=== PATIENT | male | born 1965 | race Caucasian/White ===

== ENCOUNTER 2022-03-13 07:51 | Oncology outpatient (recurring) (ONCR) | payer SELFPAY ==
[2022-03-13 09:21] LABS: Basophils # 0.1 10^3/uL (0.0-0.1); Basophils % 0.4 %; Eosinophils # 0.4 10^3/uL (0.0-0.8); Eosinophils % 1.6 %; Hematocrit 51.3 % (42.0-52.0); Hemoglobin 16.7 g/dL (11.7-16.6); Lymphocytes # 15.9 10^3/uL (0.8-4.8); Lymphocytes % 68.8 %; Mean Corpuscular HGB Conc 32.6 g/dL (30.0-36.0); Mean Corpuscular Hemoglobin 29.9 pg (28.0-34.0); Mean Corpuscular Volume 91.9 fl (80-94); Mean Platelet Volume 10.5 fL (7.4-10.4); Monocytes # 0.9 10^3/uL (0.2-0.9); Neutrophils # 5.73 10^3/uL (1.8-7.7); Neutrophils % 24.9 %; Nucleated Red Blood Cells % 0 %; Platelet Count 331 10^3/cmm (130-400); Red Blood Count 5.58 10^6/uL (4.1-5.3); Red Cell Distribution Width 13.7 % (12.1-15.1); White Blood Count 23.1 10^3/uL (4.0-10.0)
[2022-03-13 09:26] LABS: Slide Review Slide Review Perform
[2022-03-13 09:36] LABS: Alanine Aminotransferase 21 U/L (0-41); Albumin Level 3.9 g/dL (3.5-5.2); Alkaline Phosphatase 85 U/L (40-130); Aspartate Amino Transferase 16 U/L (0-40); Blood Urea Nitrogen 15 mg/dL (6-20); Calcium 9.1 mg/dL (8.5-10.5); Carbon Dioxide 23 mmol/L (22-29); Chloride 103 mmol/L (98-107); Globulin 3.1 g/dL (1.3-4.6); Glomerular Filtration Rate 116.7 mL/min (90-130); Glucose 96 mg/dL (65-115); Lactate Dehydrogenase 151 U/L (135-225); Osmolality Calculated 279 mOsm/kg (285-295); Sodium 134 mmol/L (136-145); Total Bilirubin 0.6 mg/dL (0.15-1.2); Uric Acid 7.1 mg/dL (3.4-7.0)
[2022-03-13 09:49] LABS: LAB Peripheral Smear Sent for Review
[2022-03-14 16:04] LABS: Leukemia Profile (BBPL) See Report; Lymphoma Profile (BBPL) See Report
== END 2022-03-13 23:59 | disposition home or self-care (01) ==
PROVIDERS: Visit Provider Internal Medicine Medical Oncology
DX: D72.820 Lymphocytosis (symptomatic) (principal)
CPT/HCPCS: 80053; 83615; 84550; 85025; 88184; 88185

== ENCOUNTER 2022-03-23 13:04 | Outpatient (CLI) | payer BC, MEDICAID, SELFPAY ==
[2022-03-23] MEDS: iohexol 350 mg/mL 500 mL Btl (per mL) IV (13:40)
[2022-03-23] MEDS: iohexol 350 mg/mL 500 mL Btl (per mL) PO (14:30)
--- NOTE | 2022-03-23 14:30 | CT_ITS ---
WS: [id number] CT CHEST, ABDOMEN AND PELVIS WITH CONTRAST. HISTORY: Staging for lymphoma TECHNIQUE: Contiguous 5 mm axial imaging performed through the chest, abdomen and pelvis with IV cont rast, oral contrast has been provided. Coronal and sagittal reformats chest. Coronal and sagittal ref ormats through the abdomen and pelvis. All CT scans at [facility] use at least one of these d ose optimization techniques: automated exposure control; mA and/or kV adjustment per patient size (in cludes targeted exams where dose is matched to clinical indication); or iterative reconstruction. CONTRAST: Omnipaque 350; 95 mL IV. DLP: 1716.38 mGy.cm COMPARISON: None available. Chest CT: Mild paraseptal emphysema. No pulmonary mass or nodule. No pneumonia. Heart size is normal. No pericardial or pleural effusions. Small axillary lymph nodes maintain their normal fatty maikol. Th ere are a few small mediastinal and hilar lymph nodes which are subcentimeter. The largest measure up to 7 mm. Mild atherosclerosis aorta. Normal size pulmonary artery. Mild bilateral gynecomastia. Smal l hiatal hernia. Abdomen CT: No enlargement of the spleen or liver. Peripheral blush-like arterial enhancement of the lesion in the LEFT lobe of the liver measuring 2.5 x 1.7 cm consistent with a hemangioma. Additional hemangioma in the medial RIGHT lobe of the liver measuring 1.0 x 0.7 cm. Gallbladder is normal. No sp lenomegaly or enlargement. Normal pancreas and adrenal glands. Mild atherosclerosis aorta. No renal e nlargement or mass. No obstruction. No infiltrating stable renal lesions. Stomach is well distended with oral contrast. No small bowel obstruction. No evidence for appendiciti s. Mild: Distal diverticular disease. No acute diverticulitis. No ascites or adenopathy. No additional mass or infiltrating lesions. Pelvic CT: No free fluid or adenopathy. Well-distended urinary bladder. Small benign appearing inguin al lymph nodes. Central prostate gland calcification. Degenerative disc disease at L5-S1. CT/CT chest abd pel w con* IMPRESSION: 1. No significant adenopathy within the chest, abdomen or pelvis. No prior michel dies to evaluate for prior adenopathy with change. 2. Normal spleen. 3. Hepatic hemangiomas. 4. No metastatic lesions within the lungs are liver. 5. No ascites. 6. Mild distal colon diverticular disease.
== END 2022-03-23 13:05 | disposition home or self-care (01) ==
PROVIDERS: PCP Family Medicine; Visit Provider Internal Medicine Medical Oncology
DX: D72.820 Lymphocytosis (symptomatic) (principal); R59.1 Generalized enlarged lymph nodes; D18.09 Hemangioma of other sites; K57.30 Diverticulosis of large intestine without perforation or abscess without bleeding
CPT/HCPCS: 71260; 74177

== ENCOUNTER 2022-05-01 07:46 | Oncology outpatient (recurring) (ONCR) | payer BC, MEDICAID, SELFPAY ==
[2022-03-14 09:00] LABS: Thyroid Stimulating Hormone 1.53 uIU/mL (0.27-4.20)
[2022-05-01 09:01] LABS: Basophils # 0.2 10^3/uL (0.0-0.1); Basophils % 0.5 %; Eosinophils # 0.3 10^3/uL (0.0-0.8); Eosinophils % 1.1 %; Hematocrit 51.2 % (42.0-52.0); Hemoglobin 16.3 g/dL (11.7-16.6); Lymphocytes # 14.8 10^3/uL (0.8-4.8); Lymphocytes % 48.7 %; Mean Corpuscular HGB Conc 31.8 g/dL (30.0-36.0); Mean Corpuscular Hemoglobin 29.2 pg (28.0-34.0); Mean Corpuscular Volume 91.8 fl (80-94); Mean Platelet Volume 10.2 fL (7.4-10.4); Monocytes # 1.3 10^3/uL (0.2-0.9); Monocytes % 4.4 %; Neutrophils % 44.9 %; Nucleated Red Blood Cells % 0 %; Platelet Count 391 10^3/cmm (130-400); Red Blood Count 5.58 10^6/uL (4.1-5.3); Red Cell Distribution Width 13.8 % (12.1-15.1)
[2022-05-01 09:21] LABS: Alanine Aminotransferase 31 U/L (0-41); Alkaline Phosphatase 99 U/L (40-130); Anion Gap 13.5 (5-19); Aspartate Amino Transferase 21 U/L (0-40); Blood Urea Nitrogen 13 mg/dL (6-20); Calcium 9.2 mg/dL (8.5-10.5); Carbon Dioxide 25 mmol/L (22-29); Chloride 105 mmol/L (98-107); Glomerular Filtration Rate 87.3 mL/min (90-130); Glucose 92 mg/dL (65-115); Lactate Dehydrogenase 166 U/L (135-225); Osmolality Calculated 288 mOsm/kg (285-295); Potassium 4.5 mmol/L (3.5-5.1); Sodium 139 mmol/L (136-145); Total Bilirubin 0.3 mg/dL (0.15-1.2)
[2022-05-01 09:45] LABS: Slide Review Slide Review Perform
[2022-05-01 09:46] LABS: White Blood Count 30.4 10^3/uL (4.0-10.0)
[2022-05-01 10:21] LABS: Immunoglobulin IGA 280 mg/dL (70-400); Immunoglobulin IGG 1061 mg/dL (700-1600); Immunoglobulin IGM 67 mg/dL (40-230)
[2022-05-11 07:04] LABS: CLL Prognostic Panel (BBPL) See Report
== END 2022-05-13 23:59 | disposition home or self-care (01) ==
PROVIDERS: PCP Family Medicine; Visit Provider Internal Medicine Medical Oncology
DX: C91.10 Chronic lymphocytic leukemia of B-cell type not having achieved remission (principal); R53.83 Other fatigue; R61 Generalized hyperhidrosis; F17.210 Nicotine dependence, cigarettes, uncomplicated
CPT/HCPCS: 36415; 80053; 81263; 82232; 82784; 83615; 84443; 85025; 88185; 88264; 88271; 88367; 88374

== ENCOUNTER 2022-05-25 11:50 | Oncology outpatient (recurring) (ONCR) | payer BC, MEDICAID, SELFPAY ==
[2022-05-25 12:32] LABS: Basophils # 0.1 10^3/uL (0.0-0.1); Basophils % 0.4 %; Eosinophils # 0.3 10^3/uL (0.0-0.8); Eosinophils % 1.2 %; Hematocrit 51.3 % (42.0-52.0); Hemoglobin 16.1 g/dL (11.7-16.6); Lymphocytes # 16.3 10^3/uL (0.8-4.8); Lymphocytes % 65.9 %; Mean Corpuscular HGB Conc 31.4 g/dL (30.0-36.0); Mean Corpuscular Hemoglobin 28.5 pg (28.0-34.0); Mean Platelet Volume 10.1 fL (7.4-10.4); Monocytes # 1.1 10^3/uL (0.2-0.9); Monocytes % 4.2 %; Neutrophils # 6.94 10^3/uL (1.8-7.7); Neutrophils % 28.1 %; Nucleated Red Blood Cells % 0.1 %; Platelet Count 307 10^3/cmm (130-400); Red Blood Count 5.64 10^6/uL (4.1-5.3); Red Cell Distribution Width 14.3 % (12.1-15.1); White Blood Count 24.8 10^3/uL (4.0-10.0)
[2022-05-25 12:40] LABS: Slide Review Slide Review Perform
[2022-05-25 12:55] LABS: Alanine Aminotransferase 22 U/L (0-41); Albumin Level 4.2 g/dL (3.5-5.2); Alkaline Phosphatase 88 U/L (40-130); Anion Gap 12.3 (5-19); Aspartate Amino Transferase 17 U/L (0-40); Blood Urea Nitrogen 16 mg/dL (6-20); Calcium 9.5 mg/dL (8.5-10.5); Carbon Dioxide 25 mmol/L (22-29); Chloride 107 mmol/L (98-107); Glomerular Filtration Rate 77.3 mL/min (90-130); Glucose 92 mg/dL (65-115); Lactate Dehydrogenase 152 U/L (135-225); Osmolality Calculated 291 mOsm/kg (285-295); Potassium 4.3 mmol/L (3.5-5.1); Sodium 140 mmol/L (136-145); Total Bilirubin 0.9 mg/dL (0.15-1.2); Total Protein 7.2 g/dL (6.6-8.7)
== END 2022-06-13 23:59 | disposition home or self-care (01) ==
PROVIDERS: PCP Family Medicine; Visit Provider Internal Medicine Medical Oncology
DX: C91.10 Chronic lymphocytic leukemia of B-cell type not having achieved remission (principal)
CPT/HCPCS: 36415; 80053; 83615; 85025